=== PATIENT | female | born 1970 | race Caucasian/White ===

== ENCOUNTER → 2017-07-21 | Outpatient (CLI) | payer OTHER ==
[~2017-07-21] MED LIST: IOPAMIDOL (ISOVUE-300) 100 ML BTL ONE
== END ==
LOC: CIMAGING 10:15
PROVIDERS: ATTEND Family Medicine
DX: R10.31 Right lower quadrant pain (principal); R14.0 Abdominal distension (gaseous)
CPT/HCPCS: 74178-PO; Q9967

== ENCOUNTER → 2019-01-25 | Outpatient (CLI) | payer OTHER | LOC: CIMAGING 14:21 | PROVIDERS: ATTEND Family Medicine | DX: Z12.31 Encounter for screening mammogram for malignant neoplasm of breast (principal) ==